=== PATIENT | male | born 1990 | race Caucasian/White ===

== ENCOUNTER 2017-02-14 16:45 | Emergency (ER) | payer SELFPAY ==
[2017-02-14 16:58] VITALS: RESP 20; TEMP 98.3
--- NOTE | 2017-02-14 18:00 | C.PDOC ---
History Of Present Illness Patient was brought in ED by [facility] for evaluation. Patient has h/o depression. Yesterday while consuming alcohol patient emailed his therapist that "life was not worth living". Today the ambulance, mobile crisis and police showed up. Patient denies suicidal or homicidal ideations at this time. Time Seen by Provider: 02/14/17 17:49 Chief Complaint (Nursing): Psychiatric Evaluation History Per: Patient, Other (mobile crisis) History/Exam Limitations: no limitations Current Symptoms Are (Timing): Gone Modifying Factor(s): Alcohol Associated Symptoms: Depression Recent travel outside of the [place]: No Past Medical History Reviewed: Historical Data, Nursing Documentation, Vital Signs Vital Signs: Last Vital Signs Temp 98.3 F 02/14/17 16:52 Pulse 88 02/14/17 18:09 Resp 20 02/14/17 18:09 BP 124/86 02/14/17 18:09 Pulse Ox 97 02/14/17 18:09 - Medical History PMH: Anxiety, Depression Denies: Diabetes, Hepatitis, HIV, HTN, Chronic Kidney Disease, Seizures, Sexually Transmitted Disease Family History: States: Unknown Family Hx - Social History Hx Tobacco Use: No Hx Alcohol Use: Yes (social) Hx Substance Use: No - Immunization History Hx Tetanus Toxoid Vaccination: No Hx Influenza Vaccination: No Hx Pneumococcal Vaccination: No Review Of Systems Except As Marked, All Systems Reviewed And Found Negative. Physical Exam - Physical Exam Appears: Well, Non-toxic, No Acute Distress Skin: Normal Color Head: Atraumatic, Normacephalic Eye(s): bilateral: Normal Inspection Neck: Normal, Normal ROM Cardiovascular: Rhythm Regular Respiratory: Normal Breath Sounds Gastrointestinal/Abdominal: Normal Exam, No Tenderness Extremity: Normal ROM, No Tenderness Neurological/Psych: Oriented x3, Normal Speech, Normal Cognition, Normal Motor, Normal Sensation ED Course And Treatment O2 Sat by Pulse Oximetry: 96 Progress Note: Patient was evaluated by turntable worker who discussed case with Psychiatrist and cleared patient to be d/c home with his Therapist follow up. Disposition - Disposition Referrals: [facility] [Outside] Disposition: HOME/ ROUTINE Disposition Time: 18:00 Condition: STABLE Additional Instructions: Follow up with your therapist as instructed. Return to ED if feel worse. Instructions: Depression (ED), Suicide Prevention for Adults (ED) - Clinical Impression Clinical Impression: Depression
[2017-02-14 18:10] VITALS: BP 124/86; PULSE 88
[2017-02-14 18:19] VITALS: O2SAT 96
== END 2017-02-14 18:43 | disposition home or self-care (01) ==
LOC: C.ER 16:45
DX: F32.9 Major depressive disorder, single episode, unspecified (principal)